=== PATIENT | male | born 1975 | race Caucasian/White ===

== ENCOUNTER 2025-03-19 07:26 | Outpatient (RCR) | payer OTHER, SELFPAY | END 2025-04-21 15:08 | disposition home or self-care (01) | PROVIDERS: PCP Family Medicine; Visit Provider Physician Assistant Surgical | DX: M25.562 Pain in left knee (principal); M22.8X2 Other disorders of patella, left knee; Z51.89 Encounter for other specified aftercare | CPT/HCPCS: 97110; 97161 ==